=== PATIENT | male | born 1975 | race Hispanic/Latino ===

== ENCOUNTER 2022-11-30 12:39 | Emergency (ER) | payer SELFPAY ==
[~2022-11-30] VITALS: Ht 185.4 cm; Wt 90.7 kg
[2022-11-30 12:46] VITALS: BP 131/90
[2022-11-30 13:51] VITALS: BP 137/102
[2022-11-30 14:00] VITALS: BP 144/101
[2022-11-30 14:15] VITALS: BP 146/102
[2022-11-30] MEDS ORDERED: LOSARTAN POTASS50 MG PO (14:35)
[2022-11-30] MEDS ORDERED: OMNI-PAC300 MG PO ×3 (14:41→15:10)
[2022-11-30] MEDS ORDERED: ZOFRAN4 MG/TAB PO ×2 (14:46→15:10)
[2022-11-30] MEDS ORDERED: IBUPROFEN600 MG PO ×2 (14:46→15:10)
[2022-11-30] MEDS ORDERED: HYDROCO/APAP1 TA9 PO ×2 (14:46→15:10)
[2022-11-30 15:01] VITALS: BP 127/88
[2022-11-30 15:15] VITALS: BP 127/88
== END 2022-11-30 15:34 | disposition home or self-care (01) | DRG 999 ==
LOC: EDBD 12:39 → ED 12:39
PROC: 0HQ1XZZ Repair Face Skin, External Approach (ICD-10-PCS; principal; 2022-11-30)
PROC: 2W3DX1Z Immobilization of Left Lower Arm using Splint (ICD-10-PCS; 2022-11-30)
PROC: 2W3CX1Z Immobilization of Right Lower Arm using Splint (ICD-10-PCS; 2022-11-30)
DX: S01.81XA Laceration without foreign body of other part of head, initial encounter (principal); S52.501A Unspecified fracture of the lower end of right radius, initial encounter for closed fracture; S52.611A Displaced fracture of right ulna styloid process, initial encounter for closed fracture; S52.502A Unspecified fracture of the lower end of left radius, initial encounter for closed fracture; S01.21XA Laceration without foreign body of nose, initial encounter; I10 Essential (primary) hypertension; W11.XXXA Fall on and from ladder, initial encounter; Y92.009 Unspecified place in unspecified non-institutional (private) residence as the place of occurrence of the external cause